=== PATIENT | male | born 1975 | race Caucasian/White ===

== ENCOUNTER 2021-10-31 12:38 | Emergency (ER) | payer MEDICAID, SELFPAY ==
[2021-10-31 12:53] VITALS: BP 155/95; PULSE 95; RESP 19; TEMP 36.6; O2SAT 99; BMI 26.4
--- NOTE | 2021-10-31 12:58 | DI.RAD.S_ITS ---
PROCEDURE: XR CHEST 1V INDICATIONS: chest pain TECHNIQUE: One view of the chest was acquired. COMPARISON: None. FINDINGS: Surgical changes and devices: None. Lungs and pleura: Lungs are clear. No pleural effusions or pneumothorax. Mediastinum: Mediastinal contours appear normal. Heart size is normal. Bones and chest wall: No suspicious bony lesions. Overlying soft tissues appear unremarkable. IMPRESSION: No acute cardiopulmonary findings Approved by: Gordy Hudson M.D. on 10/31/2021 at 14:09
[2021-10-31 13:43] LABS: Alanine Aminotransferase 33 IU/L (<50); Albumin 4.9 g/dL (3.5-5.0); Albumin Globulin Ratio 1.9 (1.0-2.8); Alkaline Phosphatase 64 U/L (38-126); Aspartate Aminotransferase 32 IU/L (17-59); BUN Creatinine Ratio 14.9 (6-22); Bilirubin Total 1.3 mg/dL (0.2-1.3); Blood Urea Nitrogen 15 mg/dL (9-20); Calcium 8.9 mg/dL (8.4-10.2); Carbon Dioxide 23 mmol/L (22-32); Chloride 105 mmol/L (98-107); Creatine Kinase 305 U/L (55-170); Estimated Glomerular Filt Rate > 60 mL/min (>60); Globulin 2.6 g/dL (1.7-4.1); Glucose 114 mg/dL (70-100); HEMOLYSIS < 15 (0-50); Lipase 70 U/L (23-300); Magnesium 2.3 mg/dL (1.6-2.3); Potassium 3.9 mmol/L (3.4-5.1); Sodium 137 mmol/L (137-145); Total Protein 7.5 g/dL (6.3-8.2)
[2021-10-31 13:49] LABS: Add Manual Diff / Slide Review NO; Basophils Absolute Auto 0 /uL (0-100); Basophils Percent Auto 0.4 % (0-2); Eosinophils Absolute Auto 200 /uL (0-450); Eosinophils Percent Auto 1.7 % (2-4); Hematocrit 45.7 % (41-53); Hemoglobin 15.9 g/dL (13.5-17.5); Lymphocytes Absolute Auto 1700 /uL (1100-4500); Lymphocytes Percent Auto 15.3 % (25-40); Mean Corpuscular HGB Conc 34.8 % (30-36); Mean Corpuscular Hemoglobin 29.3 PG (26-34); Mean Corpuscular Volume 84.3 fL (80-100); Monocytes Absolute Auto 1300 /uL (0-900); Monocytes Percent Auto 12.1 % (3-14); Neutrophils Absolute Auto 7700 /uL (1500-7000); Neutrophils Percent Auto 70.5 % (50-75); Platelet Count 348 X10^3/uL (150-400); Red Blood Cell Count 5.42 X10^6/uL (4.5-5.9); Red Cell Distribution Width 13.2 % (11.6-14.8); White Blood Cell Count 10.9 X10^3/uL (4.5-11.0)
[2021-10-31 13:54] LABS: Troponin I < 0.012 ng/mL (0.01-0.034)
--- NOTE | 2021-10-31 13:54 | ED.CHESTPAIN ---
HPI - Chest Pain <RU Rust - Last Filed: 10/31/21 16:42> General Chief Complaint: Chest Pain Stated Complaint: chest pain/fever last night/today Time Seen by Provider: 10/31/21 13:51 Source: patient Mode of arrival: Family Vehicle Limitations: no limitations History of Present Illness HPI narrative: 45-year-old male, current some day smoker, presents to the emergency department with left-sided chest pain since last night. Patient is camping at [employer] with his 2 daughters when he started experiencing left-sided chest pain that radiated to his left neck and shoulder along with feeling cold and clammy. Patient reports increased stress due to recent divorce. Familial history of cardiac issues. Patient denies any personal cardiac history. Patient was not active when the pain started and has been constant ever since. Patient currently reports a 1/10 dull ache of his chest that worsens when bending over. Related Data Previous Rx's Medication Instructions Recorded lisinopril 5 mg tablet 5 mg PO DAILY blood pressure #30 10/31/21 tabs Allergies Allergy/AdvReac Type Severity Reaction Status Date / Time Penicillins Allergy Rash Verified 10/31/21 12:58 Review of Systems <RU Rust - Last Filed: 10/31/21 16:42> Review of Systems Narrative: Narrative: GENERAL: Denies chills, fatigue, fever, sweats. See HPI HEENT: Denies sinus pain, ear pain, sore throat, difficulty swallowing, dizziness. RESPIRATORY: Denies dyspnea, cough, wheezing, sputum. CARDIOVASCULAR: Denies palpitations, edema. Endorses left-sided chest pain that worsens when bending over. GASTROINTESTINAL: Denies nausea, vomiting, abdominal pain, diarrhea, constipation. : Denies dysuria, frequency, incontinence, hematuria, urinary retention, flank pain. MSK: Denies weakness, joint pain, or bony pain. SKIN: Denies rash, skin lesions, or pruritis. NEUROLOGIC: Denies weakness, dizziness, headache, numbness, confusion. PSYCHIATRIC: No concerning psychosocial issues. Patient History <RU Rust - Last Filed: 10/31/21 16:42> Social History Smoking Status: Current some day smoker Smoking Status: Current some day smoker tobacco type: cigars alcohol intake frequency: 0-2 drinks per day Alcohol type: beer Substance Use Type: marijuana Exam <RU Rust - Last Filed: 10/31/21 16:42> Narrative Exam Narrative: Exam Narrative: GENERAL: This is a well-nourished, well-developed patient, in acute distress HEAD: Atraumatic. Normocephalic. EYES: Pupils equal round and reactive. Extraocular motions intact. No scleral icterus, injection or drainage. ENT: Nose without bleeding, purulent drainage. Airway patent. NECK: Trachea midline. No JVD or lymphadenopathy. Nontender. CARDIOVASCULAR: Regular rate and rhythm without murmurs, bilateral peripheral pulses intact and equal, cap refill <2 sec. no muffled heart tones. RESPIRATORY: Breath sounds equal and clear bilaterally. No wheezes, rales, or rhonchi. No cough. No increased respiratory effort. No accessory muscle use. GASTROINTESTINAL: Abdomen soft, non-tender, nondistended without guarding or rebound. No suprapubic pain. MSK: Moves all extremities. Normal range of motion, no clubbing or edema. Neurovascularly intact. NEURO: A&O x 3. SKIN: Warm, dry, no rashes or lesions noted. Initial Vital Signs Initial Vital Signs: Vital Signs Temperature 97.8 F 10/31/21 12:53 Pulse Rate 95 H 10/31/21 12:53 Respiratory Rate 19 10/31/21 12:53 Blood Pressure 155/95 H 10/31/21 12:53 Pulse Oximetry 99 10/31/21 12:53 Oxygen Delivery Method 10/31/21 12:53 Reviewed <Jorge Brown MD - Last Filed: 11/01/21 08:12> Initial Vital Signs Initial Vital Signs: Vital Signs Temperature 97.8 F 10/31/21 12:53 Pulse Rate 95 H 10/31/21 12:53 Respiratory Rate 19 10/31/21 12:53 Blood Pressure 155/95 H 10/31/21 12:53 Pulse Oximetry 99 10/31/21 12:53 Oxygen Delivery Method 10/31/21 12:53 Scores <RU Rust - Last Filed: 10/31/21 16:42> HEART Score Heart Score history: Slightly Suspicious Heart Score EKG: Non-Specific repolarization disturbance Heart Score Age: 45-64 years old Heart Score risk factors: 1-2 risk factors Heart Score troponin: < or = to normal limit Heart Score Total: 3 <Jorge Brown MD - Last Filed: 11/01/21 08:12> HEART Score Heart Score Total: 3 Course <RU Rust - Last Filed: 10/31/21 16:42> Orders Ordered: Discontinued Medications Ketorolac Tromethamine (Ketorolac 30 Mg/Ml Vial) 30 mg IV NOW ONE Stop: 10/31/21 14:36 Last Admin: 10/31/21 14:54 Dose: 30 mg Documented By: RL Lisinopril (Lisinopril 5 Mg Tablet) 5 mg PO NOW ONE Stop: 10/31/21 15:01 Last Admin: 10/31/21 15:14 Dose: 5 mg Documented By: MADELIN Consultations Consultation #1: Dr. Mcdonald, Support Architect, recommended evaluation of blood pressure and pulse in bilateral arms to rule out dissection. Repeat troponin and cardiac enzymes at 2 hours. Give medication to lower blood pressure. Will accept if we decide to admit patient. Vital Signs Vital signs: Vital Signs - 8 hr 10/31/21 12:53 10/31/21 15:00 10/31/21 15:00 Temperature 97.8 F Pulse Rate 95 H Respiratory Rate 19 Blood Pressure 155/95 H 161/102 H 160/103 H Pulse Oximetry 99 Oxygen Delivery Method Room Air <Jorge Brown MD - Last Filed: 11/01/21 08:12> Orders Ordered: Discontinued Medications Ketorolac Tromethamine (Ketorolac 30 Mg/Ml Vial) 30 mg IV NOW ONE Stop: 10/31/21 14:36 Last Admin: 10/31/21 14:54 Dose: 30 mg Documented By: MADELIN Lisinopril (Lisinopril 5 Mg Tablet) 5 mg PO NOW ONE Stop: 10/31/21 15:01 Last Admin: 10/31/21 15:14 Dose: 5 mg Documented By: RL Vital Signs Vital signs: Vital Signs - 8 hr 10/31/21 12:53 10/31/21 15:00 10/31/21 15:00 Temperature 97.8 F Pulse Rate 95 H Respiratory Rate 19 Blood Pressure 155/95 H 161/102 H 160/103 H Pulse Oximetry 99 Oxygen Delivery Method Room Air MDM - Chest Pain <RU Rust - Last Filed: 10/31/21 16:42> Differential Diagnosis Differential diagnosis: Likely chest pain Lab Data Result diagrams: 10/31/21 12:58 10/31/21 12:58 Labs: Lab Results 10/31/21 10/31/21 10/31/21 Range/Units 12:58 12:58 15:55 WBC 10.9 (4.5-11.0) X10^3/uL RBC 5.42 (4.5-5.9) X10^6/uL Hgb 15.9 (13.5-17.5) g/dL Hct 45.7 (41-53) % MCV 84.3 (80-100) fL MCH 29.3 (26-34) PG MCHC 34.8 (30-36) % RDW 13.2 (11.6-14.8) % Plt Count 348 (150-400) X10^3/uL Neut % (Auto) 70.5 (50-75) % Lymph % (Auto) 15.3 L (25-40) % Howard % (Auto) 12.1 (3-14) % Eos % (Auto) 1.7 L (2-4) % Baso % (Auto) 0.4 (0-2) % Neut # (Auto) 7700 H (6517-4661) /uL Lymph # (Auto) 1700 (6855-1766) /uL Howard # (Auto) 1300 H (0-900) /uL Eos # (Auto) 200 (0-450) /uL Baso # (Auto) 0 (0-100) /uL Sodium 137 (137-145) mmol/L Potassium 3.9 (3.4-5.1) mmol/L Chloride 105 (98-107) mmol/L Carbon Dioxide 23 (22-32) mmol/L BUN 15 (9-20) mg/dL Creatinine 1.01 (0.66-1.25) mg/dL Estimated GFR > 60 (>60) mL/min BUN/Creatinine Ratio 14.9 (6-22) Glucose 114 H (70-100) mg/dL Calcium 8.9 (8.4-10.2) mg/dL Magnesium 2.3 (1.6-2.3) mg/dL Total Bilirubin 1.3 (0.2-1.3) mg/dL AST 32 (17-59) IU/L ALT 33 (<50) IU/L Alkaline Phosphatase 64 (38-126) U/L Total Creatine Kinase 305 H (55-170) U/L CK-MB (CK-2) 2.92 H (<2.37) ng/mL CK-MB (CK-2) Rel Index 1.0 L (1.5-5.0) % Troponin I < 0.012 0.016 (0.01-0.034) ng/mL Total Protein 7.5 (6.3-8.2) g/dL Albumin 4.9 (3.5-5.0) g/dL Globulin 2.6 (1.7-4.1) g/dL Albumin/Globulin Ratio 1.9 (1.0-2.8) Lipase 70 (23-300) U/L 10/31/21 Range/Units 15:55 WBC (4.5-11.0) X10^3/uL RBC (4.5-5.9) X10^6/uL Hgb (13.5-17.5) g/dL Hct (41-53) % MCV (80-100) fL MCH (26-34) PG MCHC (30-36) % RDW (11.6-14.8) % Plt Count (150-400) X10^3/uL Neut % (Auto) (50-75) % Lymph % (Auto) (25-40) % Howard % (Auto) (3-14) % Eos % (Auto) (2-4) % Baso % (Auto) (0-2) % Neut # (Auto) (1573-9771) /uL Lymph # (Auto) (4519-4470) /uL Howard # (Auto) (0-900) /uL Eos # (Auto) (0-450) /uL Baso # (Auto) (0-100) /uL Sodium (137-145) mmol/L Potassium (3.4-5.1) mmol/L Chloride (98-107) mmol/L Carbon Dioxide (22-32) mmol/L BUN (9-20) mg/dL Creatinine (0.66-1.25) mg/dL Estimated GFR (>60) mL/min BUN/Creatinine Ratio (6-22) Glucose (70-100) mg/dL Calcium (8.4-10.2) mg/dL Magnesium (1.6-2.3) mg/dL Total Bilirubin (0.2-1.3) mg/dL AST (17-59) IU/L ALT (<50) IU/L Alkaline Phosphatase (38-126) U/L Total Creatine Kinase 315 H (55-170) U/L CK-MB (CK-2) (<2.37) ng/mL CK-MB (CK-2) Rel Index (1.5-5.0) % Troponin I (0.01-0.034) ng/mL Total Protein (6.3-8.2) g/dL Albumin (3.5-5.0) g/dL Globulin (1.7-4.1) g/dL Albumin/Globulin Ratio (1.0-2.8) Lipase (23-300) U/L Imaging Data Chest x-ray: Radiologist's Impression: [address] [address] XRay Report Signed Patient: Richard Sykes MR#: [id number] : 1975 Acct:[id number] Age/Sex: 45 / M Date of Service: 10/31/21 Loc: ED Accession Number: [id number] ?? Procedure: XR chest 1V Ordering Provider: Jorge Brown MD PROCEDURE:? XR CHEST 1V ? INDICATIONS:? chest pain ? TECHNIQUE:? One view of the chest was acquired.? ? COMPARISON:? None. ? FINDINGS:? ? Surgical changes and devices:? None.? ? Lungs and pleura:? Lungs are clear.? No pleural effusions or pneumothorax.? ? Mediastinum:? Mediastinal contours appear normal.? Heart size is normal.? ? Bones and chest wall:? No suspicious bony lesions.? Overlying soft tissues appear unremarkable.? ? IMPRESSION:? No acute cardiopulmonary findings ? ? ? Approved by: Gordy Hudson M.D. on 10/31/2021 at 14:09? CTA - chest: Radiologist's Impression: [address] [address] [address] Scan Report Signed Patient: Richard Sykes MR#: [id number] : 1975 Acct:[id number] Age/Sex: 45 / M Date of Service: 10/31/21 Loc: ED Accession Number: [id number] ?? Procedure: CT angio chest PE protocol Ordering Provider: Eliseo Ferrer PROCEDURE:? CT ANGIO CHEST PE PROTOCOL ? INDICATIONS:? chest pain ? TECHNIQUE:? After the administration of intravenous contrast, 2 mm thick sections acquired from the pulmonary apices to the posterior costophrenic angles.? For radiation dose reduction, the following was used:? automated exposure control, adjustment of mA and/or kV according to patient size.? ? COMPARISON:? None. ? FINDINGS:? Image quality:? Excellent.? ? Pulmonary arteries:? Pulmonary arteries are normal in size, and demonstrate no intraluminal filling defects to suggest central pulmonary embolism.? ? Lungs and pleura:? Lungs are clear.? No pleural effusions or pneumothorax.? Central and peripheral airways are patent.? ? Mediastinum:? Heart size is normal, without pericardial effusion.? No mediastinal or hilar adenopathy.? Thoracic aorta is normal in caliber and enhancement.? Esophagus is normal in caliber, without hiatal hernia.? ? Bones and chest wall:? No suspicious bony lesions.? Ribs and thoracic spine appear intact throughout.? Thyroid gland unremarkable.? No axillary or supraclavicular adenopathy.? ? Abdomen:? Visualized upper abdominal solid organs appear normal in the early arterial phase of enhancement.? ? IMPRESSION:? ? Normal CT angiogram of the chest without evidence of pulmonary embolism, aortic aneurysm or dissection ? ? ? Approved by: Gordy Hudson M.D. on 10/31/2021 at 15:14? ECG Data Attestation: I personally reviewed and interpreted this ECG as follows: Interpretation: Normal sinus rhythm with Sinus arrhythmia Ventricular rate of 81 beats per minute Inferior infarct with ST depression in leads III and AVF MDM Narrative Medical decision making narrative: 45-year-old male with chest pain presents to the emergency department. Heart score of 3. Consulted director of media who provided guidance. Total CK was elevated and troponin was negative. 2 hour repeat of labs with no change. EKG shows ST depression in leads 3 and AVF. Chest x-ray and chest CT angiogram are both negative. Pain has been controlled with ketorolac. Patient was started on lisinopril due to undiagnosed hypertension. We will discharge patient home with strict return precautions and instructions to follow up with family doctor next week. Patient was agreeable with course of action. <Jorge Brown MD - Last Filed: 11/01/21 08:12> Lab Data Labs: Lab Results 10/31/21 10/31/21 10/31/21 Range/Units 12:58 12:58 15:55 WBC 10.9 (4.5-11.0) X10^3/uL RBC 5.42 (4.5-5.9) X10^6/uL Hgb 15.9 (13.5-17.5) g/dL Hct 45.7 (41-53) % MCV 84.3 (80-100) fL MCH 29.3 (26-34) PG MCHC 34.8 (30-36) % RDW 13.2 (11.6-14.8) % Plt Count 348 (150-400) X10^3/uL Neut % (Auto) 70.5 (50-75) % Lymph % (Auto) 15.3 L (25-40) % Howard % (Auto) 12.1 (3-14) % Eos % (Auto) 1.7 L (2-4) % Baso % (Auto) 0.4 (0-2) % Neut # (Auto) 7700 H (0473-9434) /uL Lymph # (Auto) 1700 (6418-1418) /uL Howard # (Auto) 1300 H (0-900) /uL Eos # (Auto) 200 (0-450) /uL Baso # (Auto) 0 (0-100) /uL Sodium 137 (137-145) mmol/L Potassium 3.9 (3.4-5.1) mmol/L Chloride 105 (98-107) mmol/L Carbon Dioxide 23 (22-32) mmol/L BUN 15 (9-20) mg/dL Creatinine 1.01 (0.66-1.25) mg/dL Estimated GFR > 60 (>60) mL/min BUN/Creatinine Ratio 14.9 (6-22) Glucose 114 H (70-100) mg/dL Calcium 8.9 (8.4-10.2) mg/dL Magnesium 2.3 (1.6-2.3) mg/dL Total Bilirubin 1.3 (0.2-1.3) mg/dL AST 32 (17-59) IU/L ALT 33 (<50) IU/L Alkaline Phosphatase 64 (38-126) U/L Total Creatine Kinase 305 H (55-170) U/L CK-MB (CK-2) 2.92 H (<2.37) ng/mL CK-MB (CK-2) Rel Index 1.0 L (1.5-5.0) % Troponin I < 0.012 0.016 (0.01-0.034) ng/mL Total Protein 7.5 (6.3-8.2) g/dL Albumin 4.9 (3.5-5.0) g/dL Globulin 2.6 (1.7-4.1) g/dL Albumin/Globulin Ratio 1.9 (1.0-2.8) Lipase 70 (23-300) U/L 10/31/21 Range/Units 15:55 WBC (4.5-11.0) X10^3/uL RBC (4.5-5.9) X10^6/uL Hgb (13.5-17.5) g/dL Hct (41-53) % MCV (80-100) fL MCH (26-34) PG MCHC (30-36) % RDW (11.6-14.8) % Plt Count (150-400) X10^3/uL Neut % (Auto) (50-75) % Lymph % (Auto) (25-40) % Howard % (Auto) (3-14) % Eos % (Auto) (2-4) % Baso % (Auto) (0-2) % Neut # (Auto) (9281-3803) /uL Lymph # (Auto) (3485-2266) /uL Howard # (Auto) (0-900) /uL Eos # (Auto) (0-450) /uL Baso # (Auto) (0-100) /uL Sodium (137-145) mmol/L Potassium (3.4-5.1) mmol/L Chloride (98-107) mmol/L Carbon Dioxide (22-32) mmol/L BUN (9-20) mg/dL Creatinine (0.66-1.25) mg/dL Estimated GFR (>60) mL/min BUN/Creatinine Ratio (6-22) Glucose (70-100) mg/dL Calcium (8.4-10.2) mg/dL Magnesium (1.6-2.3) mg/dL Total Bilirubin (0.2-1.3) mg/dL AST (17-59) IU/L ALT (<50) IU/L Alkaline Phosphatase (38-126) U/L Total Creatine Kinase 315 H (55-170) U/L CK-MB (CK-2) (<2.37) ng/mL CK-MB (CK-2) Rel Index (1.5-5.0) % Troponin I (0.01-0.034) ng/mL Total Protein (6.3-8.2) g/dL Albumin (3.5-5.0) g/dL Globulin (1.7-4.1) g/dL Albumin/Globulin Ratio (1.0-2.8) Lipase (23-300) U/L Discharge Plan Departure Patient Disposition: Home Clinical Impression: Chest pain Instructions: DI for Chest Pain Activity Restrictions/Additional Instructions: *You have been diagnosed with chest pain. There has been minor changes to your EKG but your labs are not consistent with a heart attack. Your chest x-ray and your CT angiogram were all negative. Your blood pressure has been elevated and therefore we are going to start you on 5 mg of lisinopril daily. Please follow-up with your family doctor for titration of medication. We have consulted with our director of media and we all feel comfortable sending her home at this time. If at any point he start developing worsening chest pain, shortness of breath, etc. please do not hesitate to come to the emergency department. Otherwise, follow up with your family doctor aidan. *What to do: *Please continue to take your regular medications as directed. [ x] New medication prescriptions sent to your pharmacy: [[facility] [ ] New medication written as a paper prescription [ ] No new medications given *Please follow up with your primary care provider in 2-3 days, call for an appointment. Let them know you were seen in the Emergency Department and that we ask that you be seen in follow up. We will electronically transmit a record of today's note if your PCP is in our system *If you do not have a primary care provider please contact the [facility] Resource line at [phone]. They will ask some questions about your medical history and help get you set up with a doctor in the community. ? Return to ER if you should have any new, worsening or concerning symptoms, such as worsening pain, severe headache, confusion, chest pain, difficulty breathing, fever greater than 101 F, shaking chills, persistent vomiting to the point that you cannot drink fluids, or other new or worsening symptoms. Prescriptions: New lisinopril 5 mg tablet 5 mg PO DAILY Qty: 30 0RF Referrals: Miscellaneous,DoctorMD [Primary Care Provider] - Visit Report Forms: Patient Portal/API <Jorge Brown MD - Last Filed: 11/01/21 08:12> Cosign ED Attending Cosignature Attestation: I was immediately available in the department for consultation. ?This documentation has been reviewed and I agree with assessment and plan. Supervised by Jorge Brown MD
[2021-10-31 13:58] LABS: Creatine Kinase MB 2.92 ng/mL (<2.37)
--- NOTE | 2021-10-31 14:36 | DI.CT.S_ITS ---
PROCEDURE: CT ANGIO CHEST PE PROTOCOL INDICATIONS: chest pain TECHNIQUE: After the administration of intravenous contrast, 2 mm thick sections acquired from the pulmonary apices to the posterior costophrenic angles. For radiation dose reduction, the following was used: automated exposure control, adjustment of mA and/or kV according to patient size. COMPARISON: None. FINDINGS: Image quality: Excellent. Pulmonary arteries: Pulmonary arteries are normal in size, and demonstrate no intraluminal filling defects to suggest central pulmonary embolism. Lungs and pleura: Lungs are clear. No pleural effusions or pneumothorax. Central and peripheral airways are patent. Mediastinum: Heart size is normal, without pericardial effusion. No mediastinal or hilar adenopathy. Thoracic aorta is normal in caliber and enhancement. Esophagus is normal in caliber, without hiatal hernia. Bones and chest wall: No suspicious bony lesions. Ribs and thoracic spine appear intact throughout. Thyroid gland unremarkable. No axillary or supraclavicular adenopathy. Abdomen: Visualized upper abdominal solid organs appear normal in the early arterial phase of enhancement. IMPRESSION: Normal CT angiogram of the chest without evidence of pulmonary embolism, aortic aneurysm or dissection Approved by: Gordy Hudson M.D. on 10/31/2021 at 15:14
[2021-10-31] MEDS: KETOROLAC 30 MG/ML VIAL IV (14:54)
[2021-10-31 15:00] VITALS: BP 160/103; BP 161/102
[2021-10-31] MEDS: lisinopriL 5 MG TABLET PO (15:14)
[2021-10-31 16:25] LABS: Troponin I 0.016 ng/mL (0.01-0.034)
[2021-10-31 16:28] LABS: Creatine Kinase 315 U/L (55-170)
[2021-10-31 16:54] VITALS: BP 126/84; PULSE 78; RESP 18; O2SAT 98
== END 2021-10-31 16:54 | disposition home or self-care (01) ==
PROVIDERS: Emergency Medicine; Emergency Provider Registered Nurse
DX: R07.9 Chest pain, unspecified (principal)
CPT/HCPCS: 36415; 71045; 71275; 80053; 82550; 82553; 83690; 83735; 84484; 85025; 93005; 93010; 96374; 99284; J1885; Q9967